=== PATIENT | male | born 1970 | race Caucasian/White ===

== ENCOUNTER 2019-12-11 16:18 | Inpatient (IN) | payer OTHER ==
[~2019-12-11] VITALS: Ht 177.8 cm; Wt 111.0 kg
[~2019-12-11 16:18] MED LIST: BUPR150T2; CRUTCH USE; OXYACE5T PO; RXERYTOPTH OP; RXOXYACE PO
[2019-12-11 16:35] LABS: Calcium, Ionized (POC) 0.78 mmol/L (1.10-1.46); Chloride (POC) 117 mmol/L (98-108); Creatinine (POC) 0.9 mg/dL (0.8-1.3); Glucose (ISTAT POC) 123 mg/dL (70-99); Hemoglobin (POC) 12.9 g/dL (13.5-17.5); Potassium (POC) 2.8 mmol/L (3.5-5.5); Sodium (POC) 143 mmol/L (135-148); Total CO2 (POC) 13 mmol/L (21-32)
--- NOTE | 2019-12-11 19:12 | NUR ---
ADMISSION: PT ARRIVED TO ICU-05 FROM LOAN AND CREDIT MANAGER AT 1833. TR BAND IN PLACE TO R RADIAL PUNCTURE SITE S/P ANGIOGRAM. PER REPORT, 3 STENTS PLACED TO RCA & BALLOONING COMPLETED. SITE WNL; NO BLEEDING, BRUISING OR HEMATOMA FORMATION NOTED. CAP REFILL < 3 SEC TO AFFECTED DIGITS & GOOD PLETH NOTED ON PULSE OXIMETRY. PT DENIES CP OR SOB. MONITOR SHOWS SR W/ HR 80s. BP STABLE, LEVOPHED USED DURING ANGIOGRAM BUT IS NOT IN USE CURRENTLY. LS CLEAR T/O & PT ON RA W/ O2 SATS > 92%. PT HAS NO GI/ COMPLAINTS. SKIN CONDITION OVERALL CDI, OTHER THAN ABOVE NOTED RADIAL SITE. DR WATERMAN AT BEDSIDE AT APPROX 1905. NOTIFIED HER OF PT's LOW IONIZED CA LEVEL, STS NO NEED TO REPLETE AT THIS TIME. ASKED IF PT IS ABLE TO EAT CARDIAC DIET TONIGHT, SHE STS OKAY. PLAN IS TO INITIATE HEPARIN PER PHARMACY MANAGEMENT, 8 HRS AFTER TR BAND HAS BEEN DEFLATED COMPLETELY. REPORT HAS BEEN GIVEN TO SHAYNE Neely RN TO ASSUME CARE.
--- NOTE | 2019-12-11 19:30 | NUR ---
PATIENT AWAKE A&O X3, BLOOD IN MOUTH DUE TO BITE TO TIP OF TONGUE, TONGUE SLIGHTLY SWOLLEN WITH BRUISING TO THE TIP AND SLIGHT OOZING OF BLOOD FROM TIP OF TONGUE. PATIENT ABLE TO RINSE MOUTH WITH COOL WATER. K+ RIDER INFUSING WITH NS BACK UP DUE TO BURNING AT IV SITE. TR BAND AND ARM BOARD IN PLACE TO RIGHT WRIST NO SWELLING, BRUISING OR OOZING SEEN. [place] PO MEDS WITHOUT DIFFICULTY. PLAN TO START HEPARIN 8 HOURS AFTER TR BAND IS OFF. NO FURTHER C/O CHEST PAIN OR TIGHTNESS, PATIENT AGREES TO NOTIFY NURSE IF CHEST TIGHTNESS RETURNS.
--- NOTE | 2019-12-11 21:30 | NUR ---
TR BAND FULLY DEFLATED, RIGHT RADIAL SITE REMAINS SOFT WITH NO SWELLING OR OOZING SEEN. ARM BOARD REMAINS IN PLACE
--- NOTE | 2019-12-11 22:34 | NUR ---
TR BAND OFF, CLEAR DRESSING PLACED TO SITE. WHILE SLEEPING BIOX BRIEFLY DROPPING DOWN TO 88% OXYGEN PLACED AT 2L/NC WHILE SLEEPING.
[2019-12-12 04:36] LABS: BASOPHILS ABSOLUTE AUTO 0.06 K/mm3 (0.00-0.23); BASOPHILS PERCENT AUTO 0 % (0-2); EOSINOPHILS ABSOLUTE AUTO 0.08 K/mm3 (0.00-0.68); EOSINOPHILS PERCENT AUTO 1 % (0-6); Hematocrit 40.4 % (37.0-53.0); Hemoglobin 13.8 g/dL (13.5-17.5); IMMATURE GRAN ABSOLUTE AUTO 0.03 K/mm3 (0.00-0.10); IMMATURE GRAN PERCENT AUTO 0 % (0-1); LYMPHOCYTES ABSOLUTE AUTO 2.77 K/mm3 (0.84-5.20); LYMPHOCYTES PERCENT AUTO 20 % (21-46); MONOCYTES ABSOLUTE AUTO 1.21 K/mm3 (0.16-1.47); MONOCYTES PERCENT AUTO 9 % (4-13); Mean Corpuscular HGB 30.7 pg (26.0-34.0); Mean Corpuscular HGB Conc 34.2 g/dL (31.5-36.5); Mean Corpuscular Volume 90 fL (80-100); Mean Platelet Volume 9.6 fL (9.1-12.4); NEUTROPHILS ABSOLUTE AUTO 9.47 K/mm3 (1.96-9.15); NEUTROPHILS PERCENT AUTO 70 % (41-73); Platelet Count 259 K/mm3 (150-400); RDW Coefficient Variation 13.3 % (11.7-14.2); RDW Standard Deviation 44.1 fL (35.1-46.3); Red Blood Cell Count 4.49 M/mm3 (4.30-5.90); White Blood Cell Count 13.62 K/mm3 (4.00-11.30)
[2019-12-12 05:09] LABS: CPK Creatine Kinase 489 U/L (39-308); Creatine Kinase MB Index 7.6 (0.0-4.0)
[2019-12-12 05:10] LABS: Anion Gap 7 mmol/L (6-16); Blood Urea Nitrogen 13 mg/dL (8-24); Bun/Creatinine Ratio 14.7 (12.0-20.0); CO2, Blood 23 mmol/L (21-32); Calcium, Blood 8.4 mg/dL (8.5-10.1); Chloride, Blood 111 mmol/L (98-108); Creatinine, Blood 0.88 mg/dL (0.60-1.20); Glomerular Filtration Rate >60 (60-); Glucose, Blood 107 mg/dL (70-99); Potassium, Blood 3.6 mmol/L (3.5-5.5); Sodium, Blood 141 mmol/L (136-145)
--- NOTE | 2019-12-12 05:49 | NUR ---
SUMMARY PATIENT SLEEPING OFF AND ON T/O THE NIGHT, AWAKENS VERY EASILY TO SLIGHT STIMULI. BIOX DOWN TO 78% BRIEFLY, THEN BACK UP TO 97% DUE TO SLEEP APNEA. OXYGEN PLACED AT 2L/NC MAKING LOW BIOX MID 80'S. PATIENT VERBALIZED THAT HE HAS TIMES WHEN HE FEELS LIKE HE ISN'T GETTING "ENOUGH AIR" NOT ALWAYS CORRELATING WITH HIS APNEA, NO C/O CHEST PAIN OR TIGHTNESS WITH THESE EPISODES. ONE EPISODE OF IDIOVENTRICULAR RHYTHM, SEE CHART. RIGHT RADIAL ACCESS SITE REMAINS SOFT WITH NO SWELLING, BRUISING, OR OOZING SEEN.
--- NOTE | 2019-12-12 08:11 | NUR ---
[place] of Care: Care assumed at 0700hr. Patient alert and oriented, sitting upright in bed, visiting with at bedside. Denies pain, discomfort, SOB, or dyspnea. VSS, spO2 98% on RA. Arm-board in place to rt radial arterial access site, TR band removed on NOC shift. Arterial access site wnl, no s/s of bleeding or hematoma. Heparin gtt infusing per EMAR. Peripheral IV's x2 patent and intact. Using urinal to void. Tolerating PO fluids and food without difficulty. Instructed to not get out of bed without assistance. Calm and cooperative with staff. Will continue to monitor.
--- NOTE | 2019-12-12 10:37 | NUR ---
Echocardiogram completed.
--- NOTE | 2019-12-12 18:22 | NUR ---
Shift Summary: No significant changes throughout shift. Patient remains A/O x4, VSS, spO2 96-98% on RA. SpO2 occasionally decreased to mid 80's while sleeping, but only for a 4-5 second periods. Continues to deny pain, discomfort, SOB, or dyspnea throughout shift. Transferred to bedside commode with stand-by assist without difficulty. Rt radial access site remains wnl, no s/s of bleeding or hematoma noted. Good apatite throughout shift, ate 75-95% of meal, tolerating without difficulty. Heparin gtt increased from 13 to 15u/hr per pharmacy, next PTT at 2000hr. Troponin values continued to trend down. Spoke with Dr. Carver this evening, received order to transfer to PCU status, and informed that she plans to come see the patient this evening. Call light in reach, makes needs known. Will continue to monitor until report to NOC shift RN.
--- NOTE | 2019-12-12 19:15 | NUR ---
PATIENT RESTING QUIETLY WATCHING TV, NO C/O PAIN OR PRESSURE. HEPARIN DRIP CONTINUES PRE PHARMACY. RIGHT WRIST WITH DRESSING CD&I WITH NO SWELLING, BRUISING OR OOZING. PATIENT AGREEING TO CALL NURSE IF HAVING PAIN OR FEELING SOB.
--- NOTE | 2019-12-13 05:54 | NUR ---
SUMMARY PATIENT HAD A RESTFUL NIGHT. NO C/O PAIN OR PRESSURE. WHILE SLEEPING HAVING SOME SLEEP APNEA, BIOX DOWN TO 84% FOR ONLY A SHORT TIME THEN BACK TO 97%. RIGHT WRIST WITH ARM BOARD IN PLACE RADIAL SITE REMAINS UNCHANGED.
--- NOTE | 2019-12-13 07:30 | NUR ---
AM NOTE... ASSUMED CARE OF PT APROX 0700 PT IS A&Ox4 AND IND IN THE ROOM. PT'S VS STABLE. PT DENIES ANY CHEST PAIN/PRESSURE N/V OR SOB. PT IS IN NSR IN THE 80'S. L/S CLEAR T/O ON RA. BT PRESENT AND NORMOACTIVE,ABD SOFT AND NONTENDER TO PALP. NO EDEMA NOTED ON ASSESSMENT. RADIAL SITE IS C/D/I NO SWELLING, BLEEDING OR HEMATOMA NOTED. PT IS VOIDING WELL WITH URINAL. NO BM THIS AM. WILL CONTINUE TO MONITOR.
[2019-12-13] MEDS ORDERED: ASPI81CH PO (09:26)
[2019-12-13] MEDS ORDERED: ATOR80 PO (09:26)
[2019-12-13] MEDS ORDERED: TICA90TA PO (09:27)
[2019-12-13] MEDS ORDERED: METO25 PO (09:28)
--- NOTE | 2019-12-13 10:19 | NUR ---
PT D/C HOME... PT D/C HOME WITH CARDIAC STENT CARD AND ALL OF PT'S BELONGINGS. DISCHARGE EDUCATION AND NEW MEDICATION EDUCATION PROVIDED VERBALLY AND WRITTEN. PT STATED HIS UNDERSTANDING AND DENIED ANY QUESTIONS. BOTH IVS REMOVED WNL. PT REFUSED W/C ESCORT TO THE DOOR.
== END 2019-12-13 10:05 | disposition home or self-care (01) | DRG 247 ==
LOC: ER 16:18 → ICUE 16:31 → ICUW 16:31 → ICUE 18:19
PROVIDERS: ADMIT Internal Medicine Interventional Cardiology
PROC: 4A023N7 Measurement of Cardiac Sampling and Pressure, Left Heart, Percutaneous Approach (ICD-10-PCS; principal; 2019-12-11)
PROC: 027036Z Dilation of Coronary Artery, One Artery with Three Drug-eluting Intraluminal Devices, Percutaneous Approach (ICD-10-PCS; 2019-12-11)
PROC: B2111ZZ Fluoroscopy of Multiple Coronary Arteries using Low Osmolar Contrast (ICD-10-PCS; 2019-12-11)
DX: I21.11 ST elevation (STEMI) myocardial infarction involving right coronary artery (principal); R00.1 Bradycardia, unspecified; F17.200 Nicotine dependence, unspecified, uncomplicated; E66.9 Obesity, unspecified; Z68.38 Body mass index [BMI] 38.0-38.9, adult
CPT/HCPCS: 36415; 76937; 80047; 80048; 82550; 82553; 84484; 85014; 85025; 85347; 85730; 93005; 93010; 93458; 96374; 99152; 99153; 99285-25; A9270-GY; C1725; C1769; C1874; C1887; C1894; C8929; C9606; J0461; J1644; J2250; J2270; J2405; J3010; J3246; J3480; J7030; J7040; Q9957; Q9967

== ENCOUNTER 2023-02-25 23:07 | Emergency (ER) | payer OTHER ==
[~2023-02-25] VITALS: Ht 177.8 cm; Wt 77.1 kg
[~2023-02-25 23:07] MED LIST changes: +ASPI81CH PO; +ATOR80 PO; +METO25 PO; +TICA90TA PO
[2023-02-25 23:19] VITALS: BP 154/108
[2023-02-26] MEDS ORDERED: Percocet 5-3251 EACH PO (00:24)
[2023-02-26] MEDS ORDERED: ONDA4 PO (00:24)
[2023-02-26] MEDS ORDERED: ERYT.5TO BOTHEYES (00:24)
== END 2023-02-26 00:42 | disposition home or self-care (01) ==
LOC: ER 23:07
DX: H16.133 Photokeratitis, bilateral (principal); F17.200 Nicotine dependence, unspecified, uncomplicated; I25.2 Old myocardial infarction; W89.8XXA Exposure to other man-made visible and ultraviolet light, initial encounter; Z79.82 Long term (current) use of aspirin; Z79.02 Long term (current) use of antithrombotics/antiplatelets
CPT/HCPCS: 96372; 99283-25; A9270; J1885

== ENCOUNTER 2023-06-02 20:41 | Emergency (ER) | payer OTHER ==
[~2023-06-02] VITALS: Ht 177.8 cm; Wt 81.7 kg
[~2023-06-02 20:41] MED LIST changes: +ERYT.5TO BOTHEYES; +ONDA4 PO; +Percocet 5-3251 EACH PO
[2023-06-02 20:52] VITALS: BP 134/79
[2023-06-02] MEDS ORDERED: Tetracaine HCl/Pf 0.5% Opth Soln 4 ml LEFTEYE ONE (20:55)
[2023-06-02] MEDS ORDERED: Fluorescein Sod 1MG Opth Strips LEFTEYE ONE (20:55)
[2023-06-02] MEDS ORDERED: LORazepam 1 MG Tab SL ONE (21:45)
[2023-06-02] MEDS ORDERED: Erythromycin 0.5% Opth Oint 1 gm LEFTEYE ONE (22:35)
== END 2023-06-02 22:47 | disposition home or self-care (01) ==
LOC: ER 20:41
DX: T15.02XA Foreign body in cornea, left eye, initial encounter (principal); F17.200 Nicotine dependence, unspecified, uncomplicated; W44.9XXA Unspecified foreign body entering into or through a natural orifice, initial encounter; Z79.82 Long term (current) use of aspirin; Z79.02 Long term (current) use of antithrombotics/antiplatelets; Z79.899 Other long term (current) drug therapy
CPT/HCPCS: 99283; A9270